=== PATIENT | female | born 1965 | race African-American/Black ===

== ENCOUNTER 2016-09-25 07:14 | Emergency (ER) | payer SELFPAY | END 2016-09-25 09:02 | disposition home or self-care (01) | LOC: D.ER 07:14 | DX: M76.61 Achilles tendinitis, right leg (principal) ==

== ENCOUNTER 2017-07-12 19:54 | Emergency (ER) | payer SELFPAY | END 2017-07-12 21:35 | disposition home or self-care (01) | LOC: D.ER 19:54 | DX: J20.9 Acute bronchitis, unspecified (principal); J06.9 Acute upper respiratory infection, unspecified ==

== ENCOUNTER 2019-02-26 21:19 | Emergency (ER) | payer SELFPAY ==
[~2019-02-26] VITALS: Ht 172.7 cm; Wt 138.6 kg
[2019-02-26 21:26] VITALS: Ht 172.7 cm; Wt 138.6 kg
[2019-02-26 22:44] VITALS: BP 113/82
== END 2019-02-26 22:44 | disposition home or self-care (01) ==
LOC: D.ER 21:19
DX: J02.9 Acute pharyngitis, unspecified (principal)